=== PATIENT | female | born 1995 | race Caucasian/White ===

== ENCOUNTER 2019-11-10 02:12 | Inpatient (IN) | payer OTHER ==
[~2019-11-10] VITALS: Ht 157.5 cm; Wt 100.0 kg
--- NOTE | 2019-11-10 04:03 | PR ---
[facility] [address] [facility] [place] [address] Signed Progress Notes IP Datetime Report Generated by CPN: 11/10/2019 04:03 PROGRESS NOTES: [id number] Impression: Normal progression of labor Procedures: Artificial ROM Plan: Continue present management; Anticipate Vaginal Delivery VITAL SIGNS: [id number] Vital Signs: Reviewed; Within Normal Limits EXAM: [id number] Dilatation: 8.0 Effacement: 90 Station: -2 Uterine Contractions: irregular MEMBRANES: [id number] Membrane Status: Ruptured Amniotic Fluid Color: Clear ROM Note: AROM without difficulty, moderate amount fluid noted Comments: Tolerating contractions well Fetus A: [id number] FHR Baseline: 135 Variability: Moderate 6-25bpm Accelerations: 15X15 Presentation: Vertex Fetus B: [id number] Signing Physician: Jocelyne Shine MD Copies: ~ *Electronically Signed* 11/10/19 0403 JOCELYNE SHINE MD PATIENT NAME: MARY ANNE IQBAL PROGRESS NOTE DATE OF : 95 PHYSICIAN: JOCELYNE SHINE MD RPT #: [id number] REPORT IS CONFIDENTIAL AND NOT TO BE RELEASED WITHOUT AUTHORIZATION
--- NOTE | 2019-11-10 12:17 | PR ---
[facility] [address] [facility] [place] [address] Signed PP Progress Notes Datetime Report Generated by CPN: 11/10/2019 12:17 SUBJECTIVE: [id number] Pain: Within normal limits Nausea/Vomiting: Denies Vital Signs: [id number] Vital Signs: Reviewed; Within Normal Limits EXAM: [id number] Abdomen/Uterus: Normal Lochia: Normal Extremities: Normal IMPRESSION/PLAN/PROCEDURES: [id number] Impression: Normal progression Plan: Continue present management Procedures: None Progress Notes: Doing well, without complaint, up voiding without difficulty Signing Physician: Jocelyne Shine MD Copies: ~ *Electronically Signed* 11/10/19 1217 JOCELYNE SHINE MD PATIENT NAME: MARY ANNE IQBAL PROGRESS NOTE DATE OF : 95 PHYSICIAN: JOCELYNE SHINE MD RPT #: [id number] REPORT IS CONFIDENTIAL AND NOT TO BE RELEASED WITHOUT AUTHORIZATION
--- NOTE | 2019-11-11 11:38 | PR ---
[facility] [address] [place] [address] Signed PP Progress Notes Datetime Report Generated by CPN: 11/11/2019 11:38 SUBJECTIVE: [id number] Pain: Within normal limits Nausea/Vomiting: Denies Vital Signs: [id number] Vital Signs: Reviewed; Within Normal Limits Notable Details: PP Hgb/Hct = 9.1/27.4 EXAM: [id number] Abdomen/Uterus: Normal Lochia: Normal Extremities: Normal IMPRESSION/PLAN/PROCEDURES: [id number] Impression: Normal progression Other Impression: PP Anemai Plan: Discharge Procedures: None Progress Notes: Doing well, without complaint, wants to go home. Signing Physician: Jocelyne Shine MD Copies: ~ *Electronically Signed* 11/11/19 1138 JOCELYNE SHINE MD PATIENT NAME: MARY ANNE IQBAL PROGRESS NOTE DATE OF : 95 PHYSICIAN: JOCELYNE SHINE MD RPT #: [id number] REPORT IS CONFIDENTIAL AND NOT TO BE RELEASED WITHOUT AUTHORIZATION
== END 2019-11-11 12:45 | disposition home or self-care (01) | DRG 807 ==
LOC: FBCO 02:12 → FBC 02:37
PROVIDERS: ADMIT General Practice
PROC: 10E0XZZ Delivery of Products of Conception, External Approach (ICD-10-PCS; principal; 2019-11-10)
PROC: 0UQMXZZ Repair Vulva, External Approach (ICD-10-PCS; 2019-11-10)
PROC: 10907ZC Drainage of Amniotic Fluid, Therapeutic from Products of Conception, Via Natural or Artificial Opening (ICD-10-PCS; 2019-11-10)
DX: O69.81X0 Labor and delivery complicated by cord around neck, without compression, not applicable or unspecified (principal); Z37.0 Single live birth; Z3A.39 39 weeks gestation of pregnancy; O71.82 Other specified trauma to perineum and vulva; O90.81 Anemia of the puerperium; D64.9 Anemia, unspecified; Z87.442 Personal history of urinary calculi
CPT/HCPCS: 36415; 85027; A9270; J2405; J2590; J7121